=== PATIENT | female | born 1960 | race Caucasian/White ===

== ENCOUNTER 2024-06-19 13:34 | Emergency (ER) | payer OTHER, SELFPAY ==
[2024-06-19 13:49] VITALS: BP 180/102
--- NOTE | 2024-06-19 16:47 | ED.GENMED ---
History of Present Illness
General
Chief Complaint: Exposure-Chemical
Source: patient
Exam Limitations: none
Time Seen by Provider: 06/19/24 16:29
History of Present Illness
History of Present Illness:
63-year-old female presents with potential chemical exposure. Today is Monday, last Monday she had her house sprayed for insects. The chemical use was called to [employer] HERNANDEZ 9.1%. This is sprayed on the outside of the house. She was out of her
house for several hours before reentering. She smelled an odor most concentrated in the basement. She was trying to use fans in the house and neutralize the odor however the longer she has been there the more irritated her throat her lips and her
upper chest feels. She also notes a headache. She denies a history of asthma. Please note she was diagnosed with COVID on June 03 of this year. She completely had resolution of her COVID symptoms prior to this exposure.
Past History
Past History
ED Past Medical History: Other (long QT syndrome)
ED Past Surgical History: Cardiac (Cath,) and Orthopedic (Back surgery)
Social History
Tobacco: Non-smoker
Alcohol: None
Drug: None
Living: with family
Employment: Employed
Family History
Family History: CAD and Other (Long QT)
Phy Exam
Physical Exam
Physical Exam:
General: well appearing female NAD
Heent: NC/AT mucosa moist, no erythema
Heart: RRr, no murmurs
Lungs: CTA no wheeze
Ext: no cyanosis
Course
Orders/Labs/Results
Orders:
Orders
06/19/24 14:00
ECG [Electrocardiogram (*1)] Urgent
Reason for Study: Chest Pain
06/19/24 14:01
EKG- Treatment ONCE
06/19/24 18:31
Rapid Strep Group A Urgent
LAURA Source: Throat/Pharynx
Specimen Description:
Date Specimen was Collected: 06/19/24
Time Specimen was Collected: 18:28
Vital Signs
Initial and Last Documented VS:
Initial Vital Signs
Temp Pulse Resp BP Pulse Ox
98.8 F 61 18 180/102 94
06/19/24 13:49 06/19/24 13:49 06/19/24 13:49 06/19/24 13:49 06/19/24 13:49
Last Documented Vital Signs
Temp Pulse Resp BP Pulse Ox
98.8 F 64 18 193/92 97
06/19/24 13:49 06/19/24 17:59 06/19/24 17:59 06/19/24 17:59 06/19/24 17:59
MDM/Problems Addressed
Differential Diagnosis Includes:
Chemical exposure. Patient does have history of prolonged QT. QT is 514 and QTc is 514 today. When compared to an EKG that was done in 2019, her QTc was 472
Patient slightly hypertensive here is likely due to anxiety of being here will check. Call placed to poison control for recommendations.
*Critical Care Note
Total Time (30-74mins, 75-104mins- exclusive of procedures): Not Applicable
Update Note
Update Note:
Spoke with poison control. Chemical she was exposed to his an irritant. Supportive care recommended. Other than hypertension here which I suspect is related to anxiety about the situation, she appears stable. Her lungs are clear no wheeze on
exam but if she did feel tired I did offer her bronchodilator or albuterol however she is hesitant to do so with her history of prolonged QT. I did also offer her Tylenol for headache but she declined. Recommended keeping the windows in her house
open and avoiding the chemical irritant until the issue is resolved. Stable for discharge.
Of note, patient did express to me second time into the room that she was exposed to strep throat this weekend. A rapid strep test was done and this was negative
ED Attending Note
-
Portions of this chart may have been created with voice recognition software.� Occasional wrong word or��sound alike� substitutions may have occurred due to the inherent limitations of voice recognition software.
Discharge Plan
Departure
Patient Disposition: Home (Routine Discharge)
Date of Disposition: 06/19/24
Time of Disposition: 19:35
Patient with high blood pressure during this ER visit?: No
Discharge Problem:
Chemical exposure
Instructions: BLOOD PRESSURE
Prescriptions:
No Action
nadolol 20 MG tablet
30 mg PO HS
nadolol 20 MG tablet
10 mg PO DAILY
Referrals:
Puja Hernandez PA-C [Family Provider] -
Activity Restrictions/Additional Instructions:
Stay hydrated. Use Tylenol if needed for pain. Keep windows in house open and avoid chemical irritant until issue is resolved. Return for worsening symptoms otherwise
Interventions
Interventions:
*Risk Screen - Suicide Last Done: 06/19/24 17:59
*General Assessment Last Done: 06/19/24 17:59
*Neglect/Abuse Screening Last Done: 06/19/24 18:07
ED-EENT Assessment Last Done: 06/19/24 17:59
ED- Pulmonary Assessment Last Done: 06/19/24 17:59
ED-Skin Assessment Last Done: 06/19/24 17:59
Discharge Date and Time
Print Language: AMHARIC
[2024-06-19 17:59] VITALS: BP 193/92
== END 2024-06-19 20:06 | disposition home or self-care (01) ==
LOC: EMR 13:34
PROVIDERS: EMERGENCY PHYSICIAN Student in an Organized Health Care Education/Training Program; FAMILY PHYSICIAN Physician Assistant Medical
DX: Z77.098 Contact with and (suspected) exposure to other hazardous, chiefly nonmedicinal, chemicals (principal); R51.9 Headache, unspecified
CPT/HCPCS: 99284; 87070; 87880; 93005

== ENCOUNTER → 2025-04-28 13:10 | Outpatient (REF) | payer OTHER, SELFPAY | LOC: HWRAD 13:10 | PROVIDERS: ATTENDING PHYSICIAN Physician Assistant | DX: M25.561 Pain in right knee (principal); M25.562 Pain in left knee | CPT/HCPCS: 73564 ==